=== PATIENT | female | born 1950 | race Hispanic/Latino ===

== ENCOUNTER 2018-04-05 17:45 | Emergency (ER) | payer OTHER ==
[2018-04-05 18:42] LABS: RAPID GROUP A STREP NEGATIVE (NEGATIVE)
== END 2018-04-05 19:03 | disposition home or self-care (01) ==
LOC: EDH 17:45
DX: J30.9 Allergic rhinitis, unspecified (principal); J02.9 Acute pharyngitis, unspecified; E11.9 Type 2 diabetes mellitus without complications; J45.909 Unspecified asthma, uncomplicated; M81.0 Age-related osteoporosis without current pathological fracture; Z90.710 Acquired absence of both cervix and uterus
CPT/HCPCS: 87804; 87880